=== PATIENT | male | born 1985 | race Caucasian/White ===

== ENCOUNTER 2019-12-04 19:44 | Emergency (ER) | payer SELFPAY ==
[2019-12-04] MEDS ORDERED: METOCLOPRAMIDE HCL INJ/PF 10 MG/2 ML SDV IV ONE (20:32)
[2019-12-04] MEDS ORDERED: DIPHENHYDRAMINE HCL 50 MG/ML VIAL IV ONE (20:32)
[2019-12-04] MEDS ORDERED: NORMAL SALINE 1000 ML 1,000 ML IV ONE (20:32)
--- NOTE | 2019-12-04 20:33 | ER Document Report ---
ED GI/ - General Chief Complaint: Abdominal Cramping Stated Complaint: ABDOMINAL/HEAD PAIN Time Seen by Provider: 12/04/19 20:22 Notes: CHIEF COMPLAINT: Abdominal pain for months HPI: 34-year-old male presenting to the emergency department complaining of generalized abdominal pain with diarrhea that is been a daily event for 3 to 6 months. No fevers. No vomiting. Complains of lower rectal discomfort. States he also has a frontal headache today. Denies nausea vomiting. States he has been seen at the emergency department in [facility], has had x-rays but never CT, has never followed up in the last 6 months with a hot billet shear operator or primary care provider for further evaluation of symptoms ROS: See HPI - all other systems were reviewed and are otherwise negative Constitutional: no fever Eyes: no drainage, no blurred vision ENT: no runny nose, no sore throat Cardiovascular: no chest pain Resp: no SOB, no cough GI: no vomiting, positive diarrhea, positive abdominal pain : no dysuria Integumentary: no rash Allergy: no hives Musculoskeletal: no extremity pain or swelling Neurological: no numbness/tingling, no weakness, positive frontal headache MEDICATIONS: I agree with the patient medications as charted by the RN. ALLERGIES: I agree with the allergies as charted by the RN. PAST MEDICAL HISTORY/PAST SURGICAL HISTORY: Reviewed and agree as charted by RN. SOCIAL HISTORY: Reviewed and agree as charted by RN. FAMILY HISTORY: No significant familial comorbid conditions directly related to patient complaint EXAM: Reviewed vital signs as charted by RN. CONSTITUTIONAL: Alert and oriented and responds appropriately to questions. Well-appearing; well-nourished HEAD: Normocephalic; atraumatic EYES: PERRL; Conjunctivae clear, sclerae non-icteric ENT: normal nose; no rhinorrhea; moist mucous membranes; pharynx without lesions noted, no uvula edema or deviation, no tonsillar hypertrophy, phonation normal NECK: Supple without meningismus; non-tender; no cervical lymphadenopathy, no masses CARD: RRR; no murmurs, no clicks, no rubs, no gallops; symmetric distal pulses RESP: Normal chest excursion without splinting or tachypnea; breath sounds clear and equal bilaterally; no wheezes, no rhonchi, no rales, pulse oximetry 99% on room air not hypoxic ABD/GI: Normal bowel sounds; non-distended; soft, mild generalized tenderness on palpation without focal tenderness, no rebound, no guarding; no palpable organomegaly or masses. BACK: The back appears normal and is non-tender to palpation, there is no CVA tenderness EXT: Normal ROM in all joints; non-tender to palpation; no cyanosis, no effusions, no edema SKIN: Normal color for age and race; warm; dry; good turgor; no acute lesions noted NEURO: Moves all extremities equally; Motor and sensory function intact PSYCH: The patient's mood and manner are appropriate. Grooming and personal hygiene are appropriate. MDM: 34-year-old male with 3 to 6 months of abdominal pain complaints with diarrhea. No prior history in our system. Will obtain screening labs and CT today to evaluate for colitis or other intra-abdominal surgical or infectious pathologies - Related Data Allergies/Adverse Reactions: amoxicillin Allergy (Verified 12/04/19 20:27) aspirin Allergy (Verified 12/04/19 20:27) clindamycin Allergy (Verified 12/04/19 20:27) coconut Allergy (Verified 12/04/19 20:27) strawberry Allergy (Verified 12/04/19 20:27) Past Medical History - Social History Smoking Status: Never Smoker Family History: Reviewed & Not Pertinent Patient has suicidal ideation: No Patient has homicidal ideation: No Physical Exam - Vital signs Vitals: Temp Pulse Resp BP Pulse Ox 98.5 F 86 16 128/75 H 99 12/04/19 20:03 12/04/19 20:03 12/04/19 20:03 12/04/19 20:03 12/04/19 20:03 Course - Re-evaluation Re-evalutation: 12/04/19 22:[address] imaging did not show acute emergent abnormalities I discussed this at length with the patient. Placed on Bentyl for abdominal pain and spasm refer to GI patient is in agreement with this plan - Vital Signs Vital signs: Temp Pulse Resp BP Pulse Ox 98.5 F 86 16 128/75 H 99 12/04/19 20:03 12/04/19 20:03 12/04/19 20:03 12/04/19 20:03 12/04/19 20:03 - Laboratory Result Diagrams: 12/04/19 20:50 12/04/19 20:50 Laboratory results interpreted by me: 12/04/19 20:50 Urine Urobilinogen 4.0 H Discharge - Discharge Clinical Impression: Abdominal pain, chronic, generalized Diarrhea Qualifiers: Diarrhea type: unspecified type Qualified Code(s): R19.7 - Diarrhea, unspecified Condition: Stable Disposition: HOME, SELF-CARE Additional Instructions: Take the Bentyl for abdominal pain and spasm. Follow-up closely with gastroenterology for further evaluation and treatment of this ongoing problem. Your lab work and imaging studies today did not show acute emergent abnormali ties Prescriptions: Dicyclomine HCl [Bentyl 20 mg Tablet] 20 mg PO QID PRN #20 tablet PRN Reason: Referrals: PATRICIA NUNO MD [ACTIVE STAFF] - Follow up as needed
[2019-12-04 21:03] LABS: ABSOLUTE EOSINOPHILS # (AUTO) 0.2 10^3/uL (0.0-0.6); ABSOLUTE LYMPHOCYTES (AUTO) 1.8 10^3/uL (0.5-4.7); ABSOLUTE MONOCYTES (AUTO) 0.9 10^3/uL (0.1-1.4); ABSOLUTE NEUT (AUTO) 6.8 10^3/uL (1.7-8.2); BASOPHILS % (AUTO) 0.5 % (0-2); EOSINOPHILS % (AUTO) 1.7 % (0-6); HEMATOCRIT 43.2 % (37.9-51.0); HEMOGLOBIN 14.9 g/dL (13.5-17.0); LYMPHOCYTES % (AUTO) 18.3 % (13-45); MEAN CORPUSCULAR HGB CONC 34.6 g/dL (32.0-36.0); MEAN CORPUSCULAR VOLUME 87 fl (80-97); MONOCYTES % (AUTO) 9.4 % (3-13); PLATELET COUNT 251 10^3/uL (150-450); RED BLOOD COUNT 4.98 10^6/uL (4.35-5.55); RED CELL DISTRIBUTION WIDTH 13.4 % (11.5-14.0); SEGMENTED NEUTROPHILS % (AUTO) 70.1 % (42-78); TOTAL CELLS COUNTED % (AUTO) 100 %; WHITE BLOOD COUNT 9.7 10^3/uL (4.0-10.5)
[2019-12-04 21:12] LABS: APPEARANCE,URINE SLIGHTLY-CLOUDY; BILIRUBIN,URINE NEGATIVE (NEGATIVE); COLOR,URINE YELLOW; GLUCOSE, URINE NEGATIVE (NEGATIVE); KETONES,URINE NEGATIVE (NEGATIVE); LEUKOCYTE ESTERASE,URINE NEGATIVE (NEGATIVE); NITRITE,URINE NEGATIVE (NEGATIVE); PROTEIN,URINE NEGATIVE (NEGATIVE); URINE SPECIFIC GRAVITY 1.024
[2019-12-04 21:20] LABS: ALBUMIN 4.7 g/dL (3.5-5.0); ALKALINE PHOSPHATASE 85 U/L (38-126); ANION GAP 6 (5-19); ASPARTATE AMINO TRANSFERASE 30 U/L (17-59); BILIRUBIN,TOTAL 0.5 mg/dL (0.2-1.3); BLOOD UREA NITROGEN 17 mg/dL (7-20); CALCIUM 9.8 mg/dL (8.4-10.2); CARBON DIOXIDE 28 mmol/L (22-30); CHLORIDE 104 mmol/L (98-107); GLUCOSE 89 mg/dL (75-110); POTASSIUM 4.5 mmol/L (3.6-5.0); TOTAL PROTEIN 7.7 g/dL (6.3-8.2)
--- NOTE | 2019-12-04 22:44 | RADIOLOGY REPORT (SQ) ---
EXAM DESCRIPTION: CT ABDOMEN PELVIS WITH IV CONTRAST COMPLETED DATE/TME: 12/04/2019 20:31 CLINICAL HISTORY: 34 years, Male, gen abd pain months COMPARISON: None. TECHNIQUE: Images stored on PACS. All CT scanners at this facility use dose modulation, iterative reconstruction, and/or weight based dosing when appropriate to reduce radiation dose to as low as reasonably achievable (ALARA). [facility]: Dose Right [facility]: CareDose [facility]: Dose Right [facility]: Teradose 4D [facility]: [employer] LIMITATIONS: None. FINDINGS: Lung bases are grossly clear. Mild motion artifact. The heart is of normal size. No pleural or pericardial effusion The liver is homogeneous. The gallbladder is nondistended. The pancreas spleen both adrenals and both kidneys appear grossly normal. The bowel is nonobstructed. No focal inflammatory change. It is unopacified with oral contrast. Appears residual contrast within the appendix which is otherwise normal. No inflammatory changes. No free air. No free fluid. The pelvic contents are unremarkable. Visualized bones demonstrate presumed remote posttraumatic change left ilium. IMPRESSION: No acute intra-abdominal process TECHNICAL DOCUMENTATION: Quality ID # [id number]: Final reports with documentation of one or more dose reduction techniques (e.g., Automated exposure control, adjustment of the mA and/or kV according to patient size, use of iterative reconstruction technique) copyright 2011 [employer]- All Rights Reserved
[2019-12-04 23:10] VITALS: BP 122/71
== END 2019-12-04 23:10 | disposition home or self-care (01) ==
LOC: ER 19:44
DX: R10.84 Generalized abdominal pain (principal); G89.29 Other chronic pain; R19.7 Diarrhea, unspecified; R51 Headache; K62.89 Other specified diseases of anus and rectum; Z88.1 Allergy status to other antibiotic agents; Z88.8 Allergy status to other drugs, medicaments and biological substances
CPT/HCPCS: 36415; 83690; 85025; 80053; 81001; 86701; 74177; J1200; J2765; J7030; 96361; 96374; 96375; 99284